=== PATIENT | male | born 1990 | race Caucasian/White ===

== ENCOUNTER 2020-01-19 18:12 | Emergency (ER) | payer OTHER ==
[~2020-01-19] VITALS: Ht 185.4 cm; Wt 104.0 kg
--- NOTE | 2020-01-19 18:24 | PHYS DOC ---
General Adult EDM: Chief Complaint: LOWER EXT PAIN HPI: HPI: 29-year-old male presents with left lower extremity pain along the anterior tibia. Patient was working out and dropped equipment on his left leg. He has a skin tear, but is extremely tender. He has not attempted to walk because pressure on his foot is painful. The pain is moderate in intensity and a throbbing sensation. He denies numbness, tingling, altered sensation. He denies any other injuries at this time. His tetanus is up-to-date. Review of Systems: Review of Systems: Constitutional: Denies fever or chills Eyes: Denies change in visual acuity HENT: Denies nasal congestion or sore throat Respiratory: Denies cough or shortness of breath Cardiovascular: Denies chest pain or edema GI: Denies abdominal pain, nausea, vomiting, bloody stools or diarrhea : Denies dysuria Musculoskeletal: Left anterior tibia tenderness, skin tear Integument: Denies rash Neurologic: Denies headache, focal weakness or sensory changes Endocrine: Denies polyuria or polydipsia Lymphatic: Denies swollen glands Psychiatric: Denies depression or anxiety Heart Score: Risk Factors: Risk Factors: DM, Current or recent (<one month) smoker, HTN, HLP, family history of CAD, obesity. Risk Scores: Score 0 - 3: 2.5% MACE over next 6 weeks - Discharge Home Score 4 - 6: 20.3% MACE over next 6 weeks - Admit for Clinical Observation Score 7 - 10: 72.7% MACE over next 6 weeks - Early Invasive Strategies Physical Exam: PE: Constitutional: Well developed, well nourished, no acute distress, non-toxic appearance. [] HENT: Normocephalic, atraumatic, bilateral external ears normal, oropharynx moist, no oral exudates, nose normal. [] Eyes: PERRLA, EOMI, conjunctiva normal, no discharge. [] Neck: Normal range of motion, no tenderness, supple, no stridor. [] Cardiovascular:Heart rate regular rhythm, no murmur [] Lungs & Thorax: Bilateral breath sounds clear to auscultation [] Abdomen: Bowel sounds normal, soft, no tenderness, no masses, no pulsatile masses. [] Skin: 1.5 x 3 cm skin tear of the left anterior lower leg. [] Back: No tenderness, no CVA tenderness. [] Extremities: Tenderness over the left anterior tibia, no obvious deformity. [] Neurologic: Alert and oriented X 3, normal motor function, normal sensory function, no focal deficits noted. [] Psychologic: Affect normal, judgement normal, mood normal. [] EKG: EKG: [] Radiology/Procedures: Radiology/Procedures: [] Course & Med Decision Making: Course & Med Decision Making Pertinent Labs and Imaging studies reviewed. (See chart for details) The patient's skin tear is not amenable to suture as it is partially fragmented and does not appear to go completely through the dermis. His x-ray is negative for fracture. Believe he does has a contusion. Will discharge him with a short course of [place] 5/325 for pain. He will be sore for several days. He is stable for discharge at this time. [] Dragon Disclaimer: Dragon Disclaimer: This electronic medical record was generated, in whole or in part, using a voice recognition dictation system. Departure Departure: Impression: Primary Impression: Contusion of left lower leg, initial encounter Additional Impression: Skin tear Disposition: 01 HOME/RESIDENCE PRIOR TO ADM Condition: STABLE Referrals: ANTHONY BE (PCP) Patient Instructions: Contusions-SportsMed Scripts Hydrocodone Bit/Acetaminophen (NOR[place] 5-325 TABLET) 1 Each Tablet 1 TAB PO PRN Q6HRS PRN for PAIN, #10 TAB 0 Refills Prov: HYACINTH BEAVER DO 01/19/20 Justification of Admission: Justification of Admission: Justification of Admission Dx: N/A HYACINTH BEAVER DO Jan 19, 2020 18:24
[2020-01-19 18:26] VITALS: BP 113/74
[2020-01-19] MEDS ORDERED: HYDR-3165 PO (18:48)
--- NOTE | 2020-01-19 19:15 | RAD ---
Exam: Left tibia and fibula 2 views INDICATION: Dropped weight on lower leg TECHNIQUE: Frontal and lateral views the left tibia and fibula Comparisons: None FINDINGS: Bone mineralization is normal. No acute or healed fractures. Soft tissues are unremarkable. Joint spaces are well-maintained. IMPRESSION: No acute osseous abnormality. Electronically signed by: Mike Lilly MD (01/19/2020 7:12 PM) [id number]
== END 2020-01-19 19:00 | disposition home or self-care (01) ==
LOC: ER 18:12
DX: S81.812A Laceration without foreign body, left lower leg, initial encounter (principal); W20.8XXA Other cause of strike by thrown, projected or falling object, initial encounter; Y93.89 Activity, other specified; Y92.89 Other specified places as the place of occurrence of the external cause; Y99.8 Other external cause status
CPT/HCPCS: 73590; 99283